=== PATIENT | male | born 1975 | race Caucasian/White ===

== ENCOUNTER 2017-04-20 10:32 | Emergency (ER) | payer OTHER ==
[2017-04-20 10:44] VITALS: BP 137/90
--- NOTE | 2017-04-20 11:31 | UC ---
Throat Pain/Nasal Justus HPI - HPI Summary HPI Summary: Patient presents to with CC of URI symptoms x 2 days. Patient reports productive cough, congestion, nasal congestion. He reports phlegm being yellow and green, with poor sleep lastnight 2/2 cough. He also complaints of "leg pain " and chills intermittently. He denies fevers, n/v/abd pain. 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 PMHx signif for chronic LBP, disc herniation, RLS, and GERD. - History of Current Complaint Chief Complaint: UCRespiratory Stated Complaint: DIFFICULTY BREATHING,COUGH Time Seen by Provider: 04/20/17 10:55 - Allergies/Home Medications Allergies/Adverse Reactions: Allergies Allergy/AdvReac Type Severity Reaction Status Date / Time No Known Allergies Allergy Verified 04/20/17 10:38 PMH/Surg Hx/FS Hx/Imm Hx - Surgical History Surgical History: None - Family History Known Family History: Positive: Hypertension - Social History Alcohol Use: Occasionally Substance Use Type: None Smoking Status (MU): Former Smoker When Did the Patient Quit Smoking/Using Tobacco: "when I was young" - Immunization History Most Recent Influenza Vaccination: Not the 2016/2017 Season Review of Systems All Other Systems Reviewed And Are Negative: Yes Physical Exam Triage Information Reviewed: Yes Appearance: Well-Appearing, No Pain Distress, Well-Nourished Vital Signs: Initial Vital Signs Temp 98.9 F 04/20/17 10:35 Pulse 90 04/20/17 10:35 Resp 16 04/20/17 10:35 BP 137/90 04/20/17 10:35 Pulse Ox 98 04/20/17 10:35 Vital Signs Reviewed: Yes Eyes: Positive: Conjunctiva Clear ENT: Positive: Hearing grossly normal, Pharyngeal erythema, Nasal congestion, Nasal drainage, TMs normal Dental Exam: Normal Neck exam: Normal Neck: Positive: Supple, Nontender, No Lymphadenopathy Respiratory Exam: Normal Respiratory: Positive: Chest non-tender, Lungs clear, Normal breath sounds, No respiratory distress Cardiovascular Exam: Normal Cardiovascular: Positive: RRR Abdominal Exam: Normal Abdomen Description: Positive: Nontender Skin Exam: Normal Throat Pain/Nasal Course/Dx - Differential Dx/Diagnosis Provider Diagnoses: Community acquired pneumonia Discharge - Discharge Plan Condition: Stable Disposition: HOME Prescriptions: Azithromycin TAB* [Zithromax TAB (Z-DAMIEN) 250 mg #6 tabs] 2 tab PO .TODAY, THEN 1 DAILY #1 damien Referrals: CHARLA Newman [Primary Care Provider] - If Needed Additional Instructions: Antibiotics have been sent to your pharmacy. Take until completed, and with food and water. Please drink plenty of fluids, rest, and tylenol/motrin as needed for fevers/pain relief. FRISIAN also recommend taking Flonase (nasal spray twice daily to each nostril) for additional relief. Your symptoms may not resolve for several days, but if you begin to feel worse please return or see your PCP to be reevaluated.
== END 2017-04-20 11:37 | disposition home or self-care (01) ==
LOC: UCCORT 10:32
DX: J18.9 Pneumonia, unspecified organism (principal); Z87.891 Personal history of nicotine dependence
CPT/HCPCS: 99212; G0463

== ENCOUNTER 2018-05-26 14:41 | Emergency (ER) | payer OTHER ==
--- NOTE | 2018-05-26 15:09 | UC ---
Skin Complaint HPI - History of Current Complaint Time Seen by Provider: 05/26/18 15:08 Stated Complaint: RASH GROIN AREA - Allergy/Home Medications Allergies/Adverse Reactions: Allergies Allergy/AdvReac Type Severity Reaction Status Date / Time No Known Allergies Allergy Verified 04/20/17 10:38 PMH/Surg Hx/FS Hx/Imm Hx - Surgical History Surgical History: None - Family History Known Family History: Positive: Hypertension - Social History Alcohol Use: Occasionally Substance Use Type: None Smoking Status (MU): Former Smoker When Did the Patient Quit Smoking/Using Tobacco: "when I was young" - Immunization History Most Recent Influenza Vaccination: Not the 2017/2017 Season Discharge - Discharge Plan Referrals: eKila Foy MD [Primary Care Provider] -
[2018-05-26 15:27] VITALS: BP 150/92
--- NOTE | 2018-05-26 15:54 | UC ---
Skin Complaint HPI - HPI Summary HPI Summary: C/O rash in groin. Started on scrotum and has spread including penis. - History of Current Complaint Chief Complaint: UCSkin Time Seen by Provider: 05/26/18 15:08 Stated Complaint: RASH GROIN AREA Hx Obtained From: Patient Onset/Duration: Lasting Weeks - 1, Worse Since - onset Timing: Constant Onset Severity: Mild Current Severity: Moderate Pain Intensity: 2 Location: Discrete - groin Character: Pruritus, Redness, Raised Aggravating Factor(s): Touch Alleviating Factor(s): Nothing Associated Signs & Symptoms: Negative: Thirst, Diaphoresis, Fever, Chills, Drainage - Allergy/Home Medications Allergies/Adverse Reactions: Allergies Allergy/AdvReac Type Severity Reaction Status Date / Time No Known Allergies Allergy Verified 04/20/17 10:38 PMH/Surg Hx/FS Hx/Imm Hx Previously Healthy: Yes - Surgical History Surgical History: Yes Surgery Procedure, Year, and Place: DORSAL COLUMN STIMULATOR. COLONOSCOPY - Family History Known Family History: Positive: Hypertension - Social History Occupation: Employed Full-time Lives: With Family Alcohol Use: Occasionally Substance Use Type: None Smoking Status (MU): Former Smoker When Did the Patient Quit Smoking/Using Tobacco: "when I was young" - Immunization History Most Recent Influenza Vaccination: Not the 2016/2017 Season Review of Systems All Other Systems Reviewed And Are Negative: Yes Skin: Positive: Rash Is Patient Immunocompromised?: No Physical Exam Triage Information Reviewed: Yes Appearance: Well-Appearing, Well-Nourished, Pain Distress - mild with movement. Vital Signs: Initial Vital Signs Temp 97.1 F 05/26/18 15:21 Pulse 105 05/26/18 15:21 Resp 19 05/26/18 15:21 BP 150/92 05/26/18 15:21 Pulse Ox 97 05/26/18 15:21 Vital Signs Reviewed: Yes Eyes: Positive: Conjunctiva Clear Neck exam: Normal Respiratory Exam: Normal Cardiovascular Exam: Normal Male Genital Exam: Positive: Erythema - over the anterior scrotum onto the glans and distal shaft of the penis. Angioedema over the distal shaft. Musculoskeletal Exam: Normal Neurological Exam: Normal Psychological Exam: Normal Skin: Positive: Rashes - On genitals as above. Images Perineum Male: 1 - erythematous plaque 2 - Angioedema on both sides. 3 - erythema on the glans Course/Dx - Differential Diagnoses - Skin Complaint Differential Diagnoses: Abscess, Contact Dermatitis, Eczema, Local Allergic Reaction - Diagnoses Provider Diagnosis: Contact dermatitis Discharge - Sign-Out/Discharge Documenting (check all that apply): Patient Departure All imaging exams completed and their final reports reviewed: No Studies - Discharge Plan Condition: Stable Disposition: HOME Prescriptions: Ketoconazole 2 % CREAM (NF) [Nizoral 2% CREAM (NF)] 1 applic TOPICAL BID 30 Days #30 gm predniSONE TAB* [Deltasone 20 MG TAB*] 60 mg PO DAILY #18 tab Triamcinolone 0.1% CREAM(NF) [Kenalog Cream 0.1%(NF)] 1 applic TOPICAL BID #30 gm Patient Education Materials: Contact Dermatitis (ED), Skin Yeast Infection (ED) Referrals: Keila Foy MD [Primary Care Provider] - Additional Instructions: Use the ketoconazole cream first, then the triamcinolone. Cool showers and cold packs to the area. - Billing Disposition and Condition Condition: STABLE Disposition: Home
== END 2018-05-26 16:35 | disposition home or self-care (01) ==
LOC: UCCORT 14:41
DX: L25.9 Unspecified contact dermatitis, unspecified cause (principal)
CPT/HCPCS: 99212; G0463